=== PATIENT | female | born 1965 | race Caucasian/White ===

== ENCOUNTER 2020-05-17 17:06 | Emergency (ER) | payer OTHER, SELFPAY ==
--- NOTE | ~2020-05-17 | CT_ITS ---
EXAMINATION: CT HEAD AND CERVICAL SPINE CLINICAL INFORMATION: Trauma. Pain. COMPARISON: No relevant prior imaging. TECHNIQUE: Quill Reamer images were obtained. A CT acquisition of the head and cervical spine was performed without contrast. Data was reformatted into multiplanar images at the acquisition workstation. This CT examination was performed using dose optimization techniques as appropriate, including one or more of the following: Automated exposure control, iterative reconstruction, and adjustment of technique factors (mA and/or kVp) according to patient size (this includes techniques or standardized protocols for targeted exams where dose is matched to indication/reason for exam). DLP: 1128 mGy-cm. FINDINGS: Head: There is no acute intracranial hemorrhage or abnormal extra-axial collection. No intracranial mass effect or midline shift. Lateral and third ventricles are normal. Ureña-white matter differentiation is grossly preserved and there is no evidence of acute territorial infarct. The calvarium and skull base are intact. Mastoid air cells and middle ear cavities are well aerated. No intracranial stenosis. Cervical spine: There is nonspecific straightening of the cervical lordosis. Alignment is otherwise normal. Vertebral heights are preserved. No acute fracture. No abnormal prevertebral soft tissue swelling. There is slight loss of intervertebral disc height with associated disc osteophyte spurring at C5-C6. Grossly no evidence of canal compromise. No bony neuroforaminal encroachment. Soft tissues of the neck are unremarkable. Visualized lung apices are clear. CT/CT cervical spine wo con IMPRESSION: Unremarkable CT scan of the head and cervical spine. No acute intracranial hemorrhage. No acute cervical spine fracture.
--- NOTE | ~2020-05-17 | CT_ITS ---
EXAMINATION: CT HEAD AND CERVICAL SPINE CLINICAL INFORMATION: Trauma. Pain. COMPARISON: No relevant prior imaging. TECHNIQUE: Clinical Informatics Manager images were obtained. A CT acquisition of the head and cervical spine was performed without contrast. Data was reformatted into multiplanar images at the acquisition workstation. This CT examination was performed using dose optimization techniques as appropriate, including one or more of the following: Automated exposure control, iterative reconstruction, and adjustment of technique factors (mA and/or kVp) according to patient size (this includes techniques or standardized protocols for targeted exams where dose is matched to indication/reason for exam). DLP: 1128 mGy-cm. FINDINGS: Head: There is no acute intracranial hemorrhage or abnormal extra-axial collection. No intracranial mass effect or midline shift. Lateral and third ventricles are normal. Ureña-white matter differentiation is grossly preserved and there is no evidence of acute territorial infarct. The calvarium and skull base are intact. Mastoid air cells and middle ear cavities are well aerated. No intracranial stenosis. Cervical spine: There is nonspecific straightening of the cervical lordosis. Alignment is otherwise normal. Vertebral heights are preserved. No acute fracture. No abnormal prevertebral soft tissue swelling. There is slight loss of intervertebral disc height with associated disc osteophyte spurring at C5-C6. Grossly no evidence of canal compromise. No bony neuroforaminal encroachment. Soft tissues of the neck are unremarkable. Visualized lung apices are clear. CT/CT head/brain wo con IMPRESSION: Unremarkable CT scan of the head and cervical spine. No acute intracranial hemorrhage. No acute cervical spine fracture.
[2020-05-17 17:14] VITALS: BP 114/68; PULSE 84; O2SAT 97
[2020-05-17 17:20] VITALS: BP 150/85; PULSE 76; RESP 18; TEMP 37.1; O2SAT 98; BMI 31.9
--- NOTE | 2020-05-17 17:45 | ED.HEATRA ---
HPI - Head Injury General Chief complaint: Head Injury Stated complaint: head lac Time Seen by Provider: 05/17/20 17:26 Source: patient and commissions specialist Mode of arrival: ambulatory Limitations: language barrier (Divehi speaking) History of Present Illness HPI Narrative: 55-year-old female previously healthy here with complaints of headache, dizziness and laceration to the head after being struck by a sign at a clothing store. The patient tells me she was reaching up to grab a piece of clothing with the sign fell off striking her in the head. There was no loss of consciousness. She has not had a tetanus shot. Martii used for macedonian commissions specialist Related Data Allergies Allergy/AdvReac Type Severity Reaction Status Date / Time No Known Allergies Allergy Verified 05/17/20 17:23 Review of Systems Review of Systems: Yes all other systems are reviewed and are negative Constitutional: Constitutional: Reports no additional constitutional complaints, Denies body ache(s), Denies chills, Denies fever(s), Reports headache(s) and Denies weakness Eyes: Eyes: Reports no additional eye complaints and Denies change in vision ENT: Reports system reviewed and no additional complaints, except as documented, Reports dizziness, Reports headache(s), Denies nasal congestion, Denies nasal discharge and Denies neck pain Cardiovascular: Cardiovascular: Reports no additional cardiovascular complaints, Denies chest pain, Denies leg edema and Denies dyspnea Respiratory: Respiratory: Reports no additional respiratory complaints, Denies cough and Denies dyspnea Gastrointestinal: Gastrointestinal: Reports no additional gastrointestinal complaints, Denies abdominal pain, Denies diarrhea, Denies nausea and Denies vomiting Genitourinary: Genitourinary: Reports no additional female genitourinary complaints and Denies urinary incontinence Musculoskeletal: Musculoskeletal: Reports no additional musculoskeletal complaints, Denies back pain, Denies arthralgias, Denies joint swelling, Denies neck pain, Denies numbness and Denies tingling Integumentary/Breasts: Skin/Breast: Reports system reviewed and no additional complaints, except as docu and Denies rash Comments: Laceration Neurologic: Reports system reviewed and no additional complaints, except as documented, Denies Abnormal speech present, Reports dizziness, Reports headache(s), Denies numbness, Denies tingling and Denies weakness PMFSH Past Medical History Attestation statement: The following information was validated with the patient. Source: old records reviewed and nursing notes reviewed Medical History No known health problems Social History Social History Smoked in Last 30 Days: No Use of substances other than those prescribed or required for medical reasons: No Advance Directives: No Advance Directives Information Provided: No Physical Exam Vital Signs: Vital Signs: Last Vital Signs Temp 98.6 F 05/17/20 19:14 Pulse 84 05/17/20 19:14 Resp 16 05/17/20 19:14 BP 131/69 05/17/20 19:14 Pulse Ox 98 05/17/20 19:14 Body Mass Index 31.9 Const: General: cooperative, healthy appearing, comfortable and no acute distress Orientation/consciousness: patient oriented x3 Limitations: no limitations HENMT: Head: Yes normal to inspection Head images: 1. Small laceration 1 centimetre with no active bleeding. No surrounding ecchymosis or crepitus Ears: hearing grossly normal bilaterally General nose exam: Normal external nose present Face and sinus: Yes normal facial exam Mouth: Normal oral and palatal mucosa present Throat: Yes posterior oropharynx normal Eyes: General: appearance normal, both eyes and all related structures Pupils: Equal, round and reactive pupils present Neck: Other: Lower cervical tenderness with no step-offs or deformities. Cervical collar in place Neck: Yes normal visual inspection Chest: Chest palpation & inspection: normal inspection of the chest Resp: Effort & Inspection: normal respiratory effort Auscultation: clear to auscultation bilaterally Cardio: Rate: regular rate Rhythm: regular rhythm Peripheral pulses: Peripheral pulses 2+ throughout GI: Inspection: Yes normal to inspection Palpation (GI): Soft to palpation and nontender Auscultation: normal bowel sounds Back/Spine/Pelvis: Thoracic/Lumbar Spine: thoracic and lumbar spine normal to inspection Skin: General skin exam: no rashes or lesions noted Neuro: General: patient oriented x3, no focal motor deficits and normal sensation to monofilament Cranial nerves: Yes CN's II-XII intact bilaterally, Yes Equal, round and reactive pupils present, Yes Bilaterally intact EOM present, Yes Nystagmus not present, Yes Normal facial strength present, Yes Midline tongue present and Yes Normal gag reflex present Cognition (Neuro): normal cognition Speech: No Abnormal speech present Gait exam (Neuro): Normal gait present Motor exam (neuro): 5/5 motor strength present throughout Sensory Exam: Normal double simultaneous stimulation for sensation Extrem: General: Yes normal to inspection NIH Stroke Scale Internal: Initial- Upon Arrival Level of Consciousness: Alert Level of Consciousness Questions: Answers both questions correctly Level of Consciousness Commands: Performs both tasks correctly Best Gaze: Normal Visual: No visual loss Facial Palsy: Normal Motor Arm (Right): No drift Motor Arm (Left): No drift Motor Leg (Right): No drift Motor Leg (Left): No drift Limb Ataxia: Absent Sensory: Normal Best Language: No aphasia Dysarthia: Normal Extinction and Inattention: No abnormality Score: 0 Course Course Course Narrative: +laceration s/p head injury with symptoms of HODGES, dizziness. Normal neuro exam. Will check CT head, neck. See wound repair note. Will update tetanus. 1900-CT head/neck negative. Repeat neurological exam unchanged. With [place] commissions specialist we discuss head injury follow-up. Reviewed worrisome signs and symptoms when to return to the emergency department. Comfortable discharge home. Procedures Laceration Laceration 1: Site: scalp Size (cm): 1 Description: irregular Depth: simple, single layer Skin layer closed with: other (skin adhesive) MDM - Head Injury Medical Records Attestation: I reviewed the patient's medical records. Lab Data Attestation: I reviewed the patient's lab results. Imaging Data ct head/neck: Attestation: I personally reviewed and interpreted this imaging study as follows: Radiologist's impression: EXAMINATION: CT HEAD AND CERVICAL SPINE CLINICAL INFORMATION: Trauma. Pain. COMPARISON: No relevant prior imaging. TECHNIQUE: [employer] Senior Officer images were obtained. A CT acquisition of the head and cervical spine was performed without contrast. Data was reformatted into multiplanar images at the acquisition workstation. This CT examination was performed using dose optimization techniques as appropriate, including one or more of the following: Automated exposure control, iterative reconstruction, and adjustment of technique factors (mA and/or kVp) according to patient size (this includes techniques or standardized protocols for targeted exams where dose is matched to indication/reason for exam). DLP: 1128 mGy-cm. FINDINGS: Head: There is no acute intracranial hemorrhage or abnormal extra-axial collection. No intracranial mass effect or midline shift. Lateral and third ventricles are normal. Ureña-white matter differentiation is grossly preserved and there is no evidence of acute territorial infarct. The calvarium and skull base are intact. Mastoid air cells and middle ear cavities are well aerated. No intracranial stenosis. Cervical spine: There is nonspecific straightening of the cervical lordosis. Alignment is otherwise normal. Vertebral heights are preserved. No acute fracture. No abnormal prevertebral soft tissue swelling. There is slight loss of intervertebral disc height with associated disc osteophyte spurring at C5-C6. Grossly no evidence of canal compromise. No bony neuroforaminal encroachment. Soft tissues of the neck are unremarkable. Visualized lung apices are clear. CT/CT cervical spine wo con IMPRESSION: Unremarkable CT scan of the head and cervical spine. No acute intracranial hemorrhage. No acute cervical spine fracture. Discharge Plan Discharge Clinical Impression: Laceration Concussion without loss of consciousness Qualifiers: Encounter type: initial encounter Qualified Code(s): S06.0X0A - Concussion without loss of consciousness, initial encounter Patient Disposition: Home, Self-Care Instructions: Concussion (ED), Facial Laceration (ED) Additional Instructions: Your CT scan of your head and neck are negative I expect based on her symptoms that you have a mild concussion. Get plenty of rest. Limit screen time. Follow up with her primary care doctor in several days if you continue to have symptoms. We used glue on your face to close the wound. Do not scrub this with a wash cloth Referrals: Antonio Bryson MD [Primary Care Provider] - 2 days Interventions: ED Discharge Assessment Last Done: 05/17/20 19:15 Discharge Date/Time: 05/17/20 19:16
[2020-05-17] MEDS: Diphth,Pertus(ACell),Tet Adult 0.5 ML SYRINGE IM (17:54)
[2020-05-17 19:14] VITALS: BP 131/69; PULSE 84; RESP 16; TEMP 37; O2SAT 98
== END 2020-05-17 19:16 | disposition home or self-care (01) ==
PROVIDERS: Emergency Provider Internal Medicine; PCP Internal Medicine
DX: S06.0X0A Concussion without loss of consciousness, initial encounter (principal); S01.01XA Laceration without foreign body of scalp, initial encounter; W20.8XXA Other cause of strike by thrown, projected or falling object, initial encounter; Y93.89 Activity, other specified; Y92.512 Supermarket, store or market as the place of occurrence of the external cause; Y99.8 Other external cause status
CPT/HCPCS: 12001; 70450; 72125; 90471; 90715; 99284

== ENCOUNTER 2024-03-29 14:28 | Outpatient (REF) | payer OTHER, SELFPAY ==
--- OUTSIDE RECORDS SUMMARY | 2024-03-29 14:32 | XMS_ITS | Clinical Summary ---
Author Organization [employer] [facility] Address [address] [place] [address] Care Team Providers Care Chief Environmental Commitment Officer Name Role Phone Carlos Montana MD Primary Care Prov ider Allergies No known active allergies Medications acetaminophen (Tylenol 8 Hour) 650 MG ER tablet Take 1 tablet (650 mg) by mouth every 8 (eight) hours if needed for mild pain. Do not crush, chew, or split. 180 tablet 03/29/2024 Active Active Problems Problem Noted Date Diagnosed Date Encounter for medical examination to establish c are 03/29/2024 Assessment & Plan (03/29/2024 2:07 PM EST): PCP last visit 9 months ago at [place] [facility]: fungal skin infection 4-5 months ago Hospitalization:- Pmhx: cholesterol, gerd Pshx: gallbladder 2019 All: - Meds: senna, atorvastatin 40mg, calcium 600mg, omeprazole 20mg G8A2P6 Menarche: 15 LMP: 50 Screening for colon cancer 03/29/2024 Assessment & Plan (03/29/2024 2:13 PM EST): Will refer for screening colon cancer Encounters Date Type Department Care Team Description 03/29/2024 1:45 PM EST Office Visit [facility] [address] [place] [address] Carlos Montana MD Encounter for medical examination to establish care (Primary Dx); Vitamin D deficiency; Mixed hyperlipidemia; Screening for colon cancer; Encounter for screening mammogram for malignant neoplasm of breast 03/29/2024 Travel 03/22/2024 Patient Outreach [facility] [address] [place] [address] Carlos Montana MD Pre-visit Planning ([facility] unable to reach [facility]) 02/09/2024 Telephone [facility] [address] [place] [address] Gray Vivas MD Appointment Request 02/09/2024 Telephone [facility] [address] [place] [address] Alpa Hazel MA 02/09/2024 Telephone [facility] [address] [place] [address] Carlos Montana MD INSURANCE 02/09/2024 Travel 01/28/2024 Travel 01/27/2024 Telephone [facility] [address] [place] [address] Alpa Hazel MA chart prep 01/15/2024 Telephone [facility] [address] [place] [address] Carlos Montana MD New patient from Last 3 Months Family History Medical History Relation Name Comments Asthma Father Hypertension Father Diabetes Mother Hypertension Mother Bone cancer Mother's Sister Leukemia Other cousin Heart disease Sister Relation Name Status Comments Father Mother Mother's Sister Other cousin Sister Social History Tobacco Use Types Packs/Day Years Used Date Smoking Tobacco: Never Smokeless Tobacco: Never Tobacco Cessation:Counseling Given: Not Answered Alcohol Use Standard Drinks/Week Comments Never 0 (1 standard drink = 0.6 oz pur e alcohol) Comments Unknown Sex and Gender Information Value Date Recorded Sex Assigned at Female 05/07/2023 11:51 AM EDT Legal Sex Female 11:50 AM EDT Gender Identity Female 05/07/2023 11:51 AM EDT Sexual Orientation Straight 01/27/2024 10 :34 AM EST Plan of Treatment Upcoming Encounters Date Type Department Care Team (Late st Contact Info) Description 05/09/2024 11:15 AM EDT Office Visit [facility] [address] [place] [address] Carlos Montana MD [address] [place] [address] Health Maintenance Due Date Last Done Comments CT Colonography 1965 Colonoscopy 1965 Colorectal Cancer Screening 1965 Depression Screening 1965 FIT DNA/Cologuard 1965 FIT 1965 FOBT 1965 HIV Screening 1965 SDOH Screening 1965 Sigmoidoscopy 1965 Alcohol/Substance Use Screening 1977 Hepatitis C Screening 1983 Hepatitis B Vaccines (1 of 3 - 19+ 3-dose series) 02/24/1984 Pap Smear 1986 Cervical Cancer Screening 1995 HPV/Cotest 1995 Mammogram 2005 Pneumococcal Vaccine: 50+ Years (1 of 1 - PCV) 2015 Zoster Vaccines (1 of 2) 2015 COVID-19 Vaccine (1 - 2023- season) 2023 Influenza Vaccine (#1) 2023 0, 12/08/2019, 12/28/2018, Additional history exists Tobacco Screening 03/29/2025 03/29/2024 DTaP/Tdap/Td Vaccines (2 - Td or Tdap) 05/17/2030 05/17/2020 RSV Patients and Patients Aged 60 years or older (1 - 1-dose 75+ series) 02/24/2040 HIB Vaccines Aged Out No longer eligi ble based on patient's age to complete this topic HPV Vaccines Aged Out No longer eligi ble based on patient's age to complete this topic Hepatitis A Vaccines Aged Out No long er eligible based on patient's age to complete this topic IPV Vaccines Aged Out No longer eligi ble based on patient's age to complete this topic Meningococcal Vaccine Aged Out No luiz axel eligible based on patient's age to complete this topic RSV under 20 months Aged Out No longe r eligible based on patient's age to complete this topic Rotavirus Vaccines Aged Out No longer eligible based on patient's age to complete this topic Insurance [employer] Care Teams Chief Environmental Commitment Officer Relationship Specialty Start Date End Date Carlos Montana MD [address] [place] [phone] PCP - General Internal Medicine 03/29/24
--- OUTSIDE RECORDS SUMMARY | 2024-03-29 14:32 | XMS_ITS | Encounter Summary ---
Author Organization [employer] [facility] Address [address] [address] Care Team Providers Care Teletypesetter Monitor Name Role Phone Carlos Montana MD Primary Care Prov ider Reason for Referral * Imaging (Routine) - Pending Review Specialty Diagnoses / Procedures Referred By Ghassan ryan Referred To Contact Radiology Diagnoses Encounter for screening mammogram for malignant neoplasm of breast Procedures BI Mammogram Screening Tomosynthesis Bilateral Carlos Montana MD [address] [place] [address] Phone: tel: fax: Referral ID Status Reason Start Date Expiration Date V isits Requested Visits Authorized [id number] Pending Review 03/29/2024 03/29/2025 1 1 * Consultation (Routine) - Pending Review Specialty Diagnoses / Procedures Referred By Ghassan ryan Referred To Contact Gastroenterology Diagnoses Screening for colon cancer Carlos Montana MD [address] [place] [address] Phone: tel: fax: Referral ID Status Reason Start Date Expiration Date Visits Requested Visits Authorized [id number] Pending Review Specialty Services Required 03/29/2024 03/29/2025 1 1 Encounter Details Date Type Department Care Team (Late st Contact Info) Description 03/29/2024 1:45 PM EST Office Visit [facility] [address] [place], [place] [id number] Carlos Montana MD [address] [place] [address] Encounter for medical examination to establish care (Primary Dx); Vitamin D deficiency; Mixed hyperlipidemia; Screening for colon cancer; Encounter for screening mammogram for malignant neoplasm of breast Social History Tobacco Use Types Packs/Day Years Used Date Smoking Tobacco: Never Smokeless Tobacco: Never Alcohol Use Standard Drinks/Week Comments Never 0 (1 standard drink = 0.6 oz pur e alcohol) Comments Unknown Sex and Gender Information Value Date Recorded Sex Assigned at Female 05/07/2023 11:51 AM EDT Legal Sex Female 11:50 AM EDT Gender Identity Female 05/07/2023 11:51 AM EDT Sexual Orientation Straight 01/27/2024 10 :34 AM EST documented as of this encounter Miscellaneous Notes * Assessment & Plan Note - Carlos Cook MD - 03/29/2024 2:13 PM ESTAssociated Problem(s): Screening for colon cancer Will refer for screening colon cancer * Assessment & Plan Note - Carlos Cook MD - 03/29/2024 2:07 PM ESTAssociated Problem(s): Encounter for medical examination to establish care PCP last visit 9 months ago at [facility]: fungal skin infection 4-5 months ago Hospitalization:- Pmhx: cholesterol, gerd Pshx: gallbladder 2019 All: - Meds: senna, atorvastatin 40mg, calcium 600mg, omeprazole 20mg G8A2P6 Menarche: 15 LMP: 50 documented in this encounter Plan of Treatment Upcoming Encounters Date Type Department Care Team ([facility] st Contact Info) Description 05/09/2024 11:15 AM EDT Office Visit [facility] [address] [place] [address] Carlos Montana MD [address] [place] [address] Scheduled Orders Name Type Priority Associated Diagnoses Orde r Schedule CBC auto differential Lab Routine Mixed hyperlipidemia Expected: 03/29/2024 (Approximate), Expires: 03/29/2025 Comprehensive Metabolic Panel Lab Routine Mixed hyperlipidemia Expected: 03/29/2024 (Approximate), Expires: 03/29/2025 Lipid Panel, Standard Lab Routine Mixed hyperlipidemia Expected: 03/29/2024 (Approximate), Expires: 03/29/2025 Hemoglobin A1c Lab Routine Mixed hyperlipidemia Expected: 03/29/2024 (Approximate), Expires: 03/29/2025 TSH W/Reflex to FT4 Lab Routine Mixed hyperlipidemia Expected: 03/29/2024 (Approximate), Expires: 03/29/2025 HIV-1/2 Antigen and Antibodies, Fourth Generation, with Reflexes Lab Routine Mixed hyperlipidemia Expected: 03/29/2024 (Approximate), Expires: 03/29/2025 Hepatitis C Antibody with Reflex to HCV, RNA, Quantitative, Real-Time PCR Lab Routine Mixed hyperlipidemia Expected: 03/29/2024, Expires: 03/29/2025 Vitamin D, 25-Hydroxy, Total, Immunoassay Lab Routine Vitamin D deficiency Expected: 03/29/2024 (Approximate), Expires: 03/29/2025 BI Mammogram Screening Tomosynthesis Bilateral Imaging Routine Encounter for screening mammogram for malignant neoplasm of breast Expected: 03/29/2024, Expires: 05/27/2025 Scheduled Referrals Name Type Priority Associated Diagnoses Order Schedule Referral to Gastroenterology Outpatient Referral Routine Screening for colon cancer Expected: 03/29/2024 (Approximate), Expires: 03/29/2025 documented as of this encounter Visit Diagnoses Diagnosis Encounter for medical examination to establish care- Primary Vitamin D deficiency Mixed hyperlipidemia Screening for colon cancer Special screening for malignant neoplasms, colon Encounter for screening mammogram for malignant neoplasm of breast documented in this encounter Care Teams Teletypesetter Monitor Relationship Specialty Start Date End Date Carlos Montana MD [address] [place] [phone] PCP - General Internal Medicine 03/29/24 documented as of this encounter
--- OUTSIDE RECORDS SUMMARY | 2024-03-29 14:32 | XMS_ITS | Encounter Summary ---
Author Organization [employer] Address [address] [facility] [address] [place] [address] Care Team Providers Care Director Data Analytics Name Role Phone Unavailable Primary Care Provider Unavailabl e Reason for Visit * Reason Comments Pre-visit Planning SDOH unable to reach LVM Encounter Details Date Type Department Care Team (Late Contact Info) Description 03/22/2024 Patient Outreach [facility] [address] [place] [address] Carlos Montana MD [address] [place] [address] Pre-visit Planning (SDOH unable to reach LVM) Social History Tobacco Use Types Packs/Day Years [...] AM EST documented as of this encounter Progress Notes * Amy Gaming - 03/22/2024 4:11 PM EST SRAVANTHI Renner placed outbound call to patient to complete pre-visit planning. No answer at this time. Patient name and were not confirmed. CC left voicemail requesting return call. Direct contactinformation provided. documented in this encounter Plan of Treatment Upcoming Encounters Date Type Department Care Team (Late Contact Info) Description 05/09/2024 11:15 AM EDT Office Visit [facility] [address] [place] [address] Carlos Montana MD [address] [place] [address] documented as of this encounter Visit Diagnoses Not on filedocumented in this encounter
--- OUTSIDE RECORDS SUMMARY | 2024-03-29 14:32 | XMS_ITS | Encounter Summary ---
Author Organization [employer] Address [address] [place] [address] [address] [place] [address] Care Team Providers Care Telemetry Registered Nurse Name Role Phone Carlos Montana MD Primary Care Prov ider Reason for Visit * Reason Onset Date Comments New patient 01/15/2024 Encounter Details Date Type Department Care Team (Late Contact Info) Description 01/15/2024 Telephone [facility] [address] [place] [address] Carlos Montana MD [address] [place], [place] [phone] New patient Social History Tobacco Use Types Packs/Day Years Used Date Smoking Tobacco: Never Assessed Comments Unknown Sex and Gender Information Value Date Recorded Sex Assigned at Female 05/07/2023 11:51 AM EDT Legal Sex Female 11:50 AM EDT Gender Identity Female 05/07/2023 11:51 AM EDT Sexual Orientation Straight 01/27/2024 10 :34 AM EST documented as of this encounter Miscellaneous Notes * Telephone Encounter - Maria E Villanueva - 01/15/2024 11:09 AM EST TC placed to patient for scheduling of new patient visit. Agreed to 01/28/24 with [place] Medical Conditions: High cholesterol Apptmnt reminder and release form sent via mail . documented in this encounter Plan of Treatment Upcoming Encounters Date Type Department Care Team (Late st Contact Info) Description 05/09/2024 11:15 AM EDT Office Visit [facility]ED[facility] [address] [place], [place] [phone] Carlos Montana MD [address] [place] [address] documented as of this encounter Visit Diagnoses Not on filedocumented in this encounter Care Teams Telemetry Registered Nurse Relationship Specialty Start Date End Date Carlos Montana MD [address] [place] [address] PCP - General Internal Medicine 03/29/24 documented as of this encounter
--- OUTSIDE RECORDS SUMMARY | 2024-03-29 14:32 | XMS_ITS | Encounter Summary ---
Author Organization [employer] Address [address] [facility] [address] [place] [address] Care Team Providers Care Sports Official Name Role Phone Carlos Montana MD Primary Care Prov ider Reason for Visit * Reason Onset Date Comments Appointment Request 02/09/2024 Encounter Details Date Type Department Care Team (Late Contact Info) Description 02/09/2024 Telephone [facility] [address] [place] [address] Gray Vivas MD [address] [place] [address] Appointment Request Social History Tobacco Use Types Packs/Day Years [...] encounter Miscellaneous Notes * Telephone Encounter - Guanakito Hernández - 02/09/2024 3:41 PM EST Tc from pt stating that they were informed that she needed to make another Apt IN person because the Phone is not working. due to them not having a Nc Machinist that would be able to understand her. Contact pt at [phone] documented in this encounter Plan of Treatment Upcoming Encounters Date Type Department Care Team (Late Contact Info) Description 05/09/2024 11:15 AM EDT Office Visit [facility] [address] [place] [address] Carlos Montana MD [address] [place] [address] documented as of this encounter Visit Diagnoses Not on filedocumented in this encounter Care Teams Sports Official Relationship Specialty Start Date End Date Carlos Montana MD [address] [place] [address] PCP - General Internal Medicine 03/29/24 documented as of this encounter
--- OUTSIDE RECORDS SUMMARY | 2024-03-29 14:32 | XMS_ITS | Encounter Summary ---
Author Organization [employer] [facility] Address [address] [facility] [address] [place] [address] Care Team Providers Care Cold Storage Supervisor Name Role Phone Carlos Montana MD Primary Care Prov ider Encounter Details Date Type Department Care Team (Latest Contact Info) Description 03/29/2024 Travel Social History Tobacco Use Types Packs/Day Years [...] AM EST documented as of this encounter Plan of Treatment Upcoming Encounters Date Type Department Care Team (Late st Contact Info) Description 05/09/2024 11:15 AM EDT Office Visit [facility] PEDS [address] [place] [address] Carlos Montana MD [address] [place] [address] documented as of this encounter Visit Diagnoses Not on filedocumented in this encounter Care Teams Cold Storage Supervisor Relationship Specialty Start Date End Date Carlos Montana MD [address] [place] [address] PCP - General Internal Medicine 03/29/24 documented as of this encounter
[2024-03-29 17:49] LABS: MANUAL DIFF FLAG NO
[2024-03-29 18:06] LABS: Basophils Absolute Auto 0.1 X10*3/uL (0.0-0.2); Basophils Percent Auto 1.3 % (0-2); Eosinophils Absolute Auto 0.2 X10*3/uL (0.0-0.4); Hematocrit 39.1 % (37.0-47.0); Hemoglobin 12.3 g/dl (12.0-16.0); Imm Gran Abs Auto 0.01 X10*3/uL (0.00-0.03); Imm Gran Pct Auto 0.1 % (0.0-0.4); Lymphocytes Absolute Auto 2.6 X10*3/uL (1.2-4.9); Lymphocytes Percent Auto 38.9 % (20-40); Mean Corpuscular HGB Conc 31.5 g/dl (31.0-35.0); Mean Corpuscular Hemoglobin 25.8 pg (27.0-33.0); Mean Corpuscular Volume 82.1 fL (80.0-98.0); Mean Platelet Volume 12.3 fL (9.4-12.3); Monocytes Absolute Auto 0.5 X10*3/uL (0.1-1.2); Monocytes Percent Auto 6.9 % (2-11); Neutrophils Absolute Auto 3.3 x10*3/uL (2.0-8.3); Neutrophils Percent Auto 49.8 % (45-73); Platelet Count 258 X10*3/uL (160-400); Red Blood Count 4.76 X10*6/uL (4.20-5.50); Red Cell Distribution Width 14.8 % (11.0-16.0); White Blood Count 6.7 X10*3/uL (4.8-10.8)
[2024-03-29 18:18] LABS: Estimated Average Glucose 108 mg/dL; Hemoglobin A1C 116.9239 umol/L; Hemoglobin A1c % 5.4 % (<6.0); Total Hemoglobin (HGBA1C) 3318.2555 umol/L
[2024-03-29 18:29] LABS: Alanine Aminotransferase 24 U/L (0-31); Albumin Level 4.1 g/dL (3.5-5.0); Alkaline Phosphatase 94 U/L (39-117); Anion Gap 16 (12-20); Aspartate Amino Transferase 22 U/L (5-31); Bilirubin Total 1.2 mg/dL (0.0-1.0); Blood Urea Nitrogen 9 mg/dL (9-16); Calcium 9.9 mg/dL (8.4-10.2); Carbon Dioxide 29 mmol/L (22-29); Chloride 101 mmol/L (96-108); Cholesterol 171 mg/dL (<200); Estimated Glomerular Filt Rate > 60; Glucose Random 92 mg/dL (60-115); HDL Cholesterol 38 mg/dL (>40); LDL Cholesterol Calculated 84 mg/dL (<100); Sodium 142 mmol/L (135-145); Total Protein 7.7 g/dL (6.5-8.0); Triglycerides 245 mg/dL (<150)
[2024-03-29 18:38] LABS: TSH reflex Free T4 0.92 uIU/mL (0.32-4.0); Vitamin D 25-OH Total 54.2 ng/mL (>30)
[2024-03-30 08:34] LABS: HIV AB/AG Nonreactive (Nonreactive); HIV Num 1 0.06 S/CO (0.00-0.99); ~HepC Num1 0.08 S/CO (0.00-0.79); ~Hepatitis C Antibody Nonreactive (Nonreactive)
== END 2024-03-29 14:29 | disposition home or self-care (01) ==
LOC: HO.CHCLDS 14:28
PROVIDERS: Visit Provider Internal Medicine
DX: E78.2 Mixed hyperlipidemia (principal); E55.9 Vitamin D deficiency, unspecified
CPT/HCPCS: 36415; 80053; 80061; 82306; 83036; 84443; 85025; 86803; 87389